=== PATIENT | male | born 1985 | race Caucasian/White ===

== ENCOUNTER 2016-12-06 04:24 | Emergency (ER) | payer OTHER ==
[~2016-12-06] VITALS: Ht 172.7 cm; Wt 91.4 kg
[~2016-12-06 04:24] MED LIST: CLEOCIN150 MG PO; CLEOCIN300 MG PO; CLINDAMYCIN HC150 MG PO; ERYTHROMYCIN O3.5 GM LEFT EYE; KLONOPIN0.5 M1 PO; LEVAQUIN500 MG PO; METHADONE10 MG PO; MOBIC7.5 MG PO; Motrin PO; NAPROSYN500 MG PO; Neurontin PO; OXYCODONE HCL30 MG PO; PAXIL CR12.5 MG PO
[2016-12-06 04:28] VITALS: BP 154/96
== END 2016-12-06 05:30 | disposition left against medical advice (07) ==
LOC: EME 04:24
DX: M79.641 Pain in right hand (principal); Z53.21 Procedure and treatment not carried out due to patient leaving prior to being seen by health care provider; N50.819 Testicular pain, unspecified; W19.XXXA Unspecified fall, initial encounter